=== PATIENT | female | born 1940 | race Caucasian/White ===

== ENCOUNTER 2017-07-05 10:12 | Emergency (ER) | payer OTHER ==
[~2017-07-05] VITALS: Ht 149.9 cm; Wt 71.2 kg
[~2017-07-05 10:12] MED LIST: ADALAT CC30 MG PO; ALTACE10 MG PO; CATAFLAM50 MG PO; CRESTOR20 MG PO; GLIMEPIRIDE4 MG PO; HYDROCHLOROTHIA25 MG PO; HYZAAR 100/25 T1 TAB PO; IMODIUM A-D2 MG PO; JANUVIA100 MG PO; LIPITOR20 MG PO; MECLIZINE HCL25 MG PO; METFORMIN HCL1000 MG PO; METFORMIN HCL500 MG PO; NIFEDIPINE ER30 MG PO; ORPH100T PO; PEPCID40 MG PO; RAMIPRIL10 MG PO; TOPROL XL100 MG PO; TRAM1TAB98; ULTRACET PO; ZOFRAN4 MG PO
== END 2017-07-05 15:56 | disposition home or self-care (01) ==
LOC: ER 10:12
DX: K52.9 Noninfective gastroenteritis and colitis, unspecified (principal)

== ENCOUNTER 2018-01-28 08:17 | Outpatient (CLI) | payer OTHER | END 2018-01-28 13:07 | disposition home or self-care (01) | LOC: LAB 08:17 | DX: D64.89 Other specified anemias (principal); E11.29 Type 2 diabetes mellitus with other diabetic kidney complication; E03.8 Other specified hypothyroidism; E78.2 Mixed hyperlipidemia; N39.0 Urinary tract infection, site not specified; E55.9 Vitamin D deficiency, unspecified ==

== ENCOUNTER 2018-02-22 11:06 | Emergency (ER) | payer OTHER ==
[~2018-02-22] VITALS: Ht 152.4 cm; Wt 75.7 kg
[2018-02-22] MEDS ORDERED: PLAVIX75 MG (11:34)
[2018-02-22] MEDS ORDERED: GLUCOPHAGE XR500 MG (11:35)
[2018-02-22] MEDS ORDERED: TRAMADOL HCL50 MG PO (14:35)
== END 2018-02-22 14:40 | disposition home or self-care (01) ==
LOC: ER 11:06
DX: M25.561 Pain in right knee (principal); M25.562 Pain in left knee

== ENCOUNTER 2018-02-25 13:34 | Outpatient (CLI) | payer OTHER ==
[~2018-02-25 13:34] MED LIST changes: +GLUCOPHAGE XR500 MG; +PLAVIX75 MG; +TRAMADOL HCL50 MG PO
== END 2018-02-25 13:37 | disposition home or self-care (01) ==
LOC: SONOGRAMA 13:34
DX: Z96.652 Presence of left artificial knee joint (principal)

== ENCOUNTER 2018-03-25 08:01 | Outpatient (CLI) | payer OTHER | END 2018-03-25 08:11 | disposition home or self-care (01) | LOC: TOM 08:01 | DX: K40.91 Unilateral inguinal hernia, without obstruction or gangrene, recurrent (principal) ==

== ENCOUNTER 2018-05-19 07:20 | Outpatient (CLI) | payer OTHER | END 2018-05-19 07:25 | disposition home or self-care (01) | LOC: LAB 07:20 | DX: D64.89 Other specified anemias (principal); E11.29 Type 2 diabetes mellitus with other diabetic kidney complication; I11.9 Hypertensive heart disease without heart failure; E78.2 Mixed hyperlipidemia; N39.0 Urinary tract infection, site not specified; E03.8 Other specified hypothyroidism; I25.10 Atherosclerotic heart disease of native coronary artery without angina pectoris ==

== ENCOUNTER → 2018-05-19 | Outpatient (CLI) | payer OTHER | END | disposition home or self-care (01) | LOC: NUCLEAR 08:56 | DX: I25.10 Atherosclerotic heart disease of native coronary artery without angina pectoris (principal); I65.23 Occlusion and stenosis of bilateral carotid arteries ==

== ENCOUNTER 2018-08-24 09:02 | Outpatient (CLI) | payer OTHER | END 2018-08-24 15:00 | disposition home or self-care (01) | LOC: LAB 09:02 | DX: E11.65 Type 2 diabetes mellitus with hyperglycemia (principal); D64.89 Other specified anemias; D68.8 Other specified coagulation defects; N39.0 Urinary tract infection, site not specified; K43.2 Incisional hernia without obstruction or gangrene; E11.9 Type 2 diabetes mellitus without complications; R10.9 Unspecified abdominal pain ==

== ENCOUNTER 2018-08-24 10:42 | Outpatient (CLI) | payer OTHER | END 2018-08-24 10:44 | disposition home or self-care (01) | LOC: RAD 10:42 | DX: J45.998 Other asthma (principal) ==

== ENCOUNTER → 2022-12-31 | Emergency (ER) | payer OTHER ==
[~2022-12-31] VITALS: Ht 149.9 cm; Wt 71.2 kg
[~2022-12-31] MED LIST changes: +ALDACTONE25 MG PO; +AMLODIPINE-OLM1 EAC2 PO; +ATORVASTATIN CA40 MG PO; +CARVEDILOL ER40 MG PO; +CLOPIDOGREL BIS75 MG PO; +FUSION PLUS CA1 EACH PO; +ISOSORBIDE MONO60 MG PO; +JANUMET 50-1,01 EACH PO
== END | disposition home or self-care (01) ==
LOC: ER 13:41
DX: S01.81XA Laceration without foreign body of other part of head, initial encounter (principal); W45.8XXA Other foreign body or object entering through skin, initial encounter; Y93.89 Activity, other specified; Y92.010 Kitchen of single-family (private) house as the place of occurrence of the external cause; Y99.9 Unspecified external cause status; E11.9 Type 2 diabetes mellitus without complications; Z79.84 Long term (current) use of oral hypoglycemic drugs; I10 Essential (primary) hypertension; Z88.0 Allergy status to penicillin; Z88.8 Allergy status to other drugs, medicaments and biological substances
CPT/HCPCS: 12002; 90471; 90714; 99284; J1670

== ENCOUNTER → 2024-01-04 | Emergency (ER) | payer OTHER ==
[~2024-01-04] VITALS: Ht 154.9 cm; Wt 72.6 kg
== END | disposition left against medical advice (07) ==
LOC: ER 20:24
DX: G45.8 Other transient cerebral ischemic attacks and related syndromes (principal); R53.1 Weakness; I10 Essential (primary) hypertension; E11.9 Type 2 diabetes mellitus without complications; Z79.84 Long term (current) use of oral hypoglycemic drugs; Z88.0 Allergy status to penicillin; Z88.1 Allergy status to other antibiotic agents; I25.10 Atherosclerotic heart disease of native coronary artery without angina pectoris; I73.89 Other specified peripheral vascular diseases; Z88.8 Allergy status to other drugs, medicaments and biological substances